=== PATIENT | female | born 2000 | race Caucasian/White ===

== ENCOUNTER 2022-02-16 11:55 | Emergency (ER) | payer OTHER ==
[~2022-02-16] VITALS: Ht 157.5 cm; Wt 80.5 kg
[~2022-02-16 11:55] MED LIST: NOCURR
[2022-02-16 12:14] VITALS: BP 117/72
[2022-02-16] MEDS ORDERED: LIDOCAINE 1% 10 ML VIAL ID ONE (13:30)
[2022-02-16] MEDS ORDERED: CEPH-558 PO (13:58)
== END 2022-02-16 14:09 | disposition home or self-care (01) ==
LOC: EMS 12:04
DX: L03.012 Cellulitis of left finger (principal)
CPT/HCPCS: 99283; 26010; J3490

== ENCOUNTER 2022-04-25 08:36 | Emergency (ER) | payer OTHER ==
[~2022-04-25] VITALS: Ht 167.6 cm; Wt 72.7 kg
[~2022-04-25 08:36] MED LIST changes: +CEPH-558 PO; -NOCURR
[2022-04-25] MEDS ORDERED: IBUP-45 PO (08:38)
[2022-04-25 11:39] VITALS: BP 130/82
== END 2022-04-25 11:40 | disposition home or self-care (01) ==
LOC: EMS 08:39
DX: S93.401A Sprain of unspecified ligament of right ankle, initial encounter (principal); F17.210 Nicotine dependence, cigarettes, uncomplicated; X58.XXXA Exposure to other specified factors, initial encounter; Y93.89 Activity, other specified; Y92.89 Other specified places as the place of occurrence of the external cause; Y99.8 Other external cause status
CPT/HCPCS: 99283